=== PATIENT | male | born 1990 | race Hispanic/Latino ===

== ENCOUNTER 2024-10-23 09:55 | Emergency (ER) | payer SELFPAY ==
[~2024-10-23] VITALS: Ht 170.2 cm; Wt 82.0 kg
[2024-10-23 10:00] VITALS: BP 170/94
[2024-10-23] MEDS ORDERED: FLUORESCEIN SODIUM 1 MG EA OD ONE (10:05)
[2024-10-23] MEDS ORDERED: TETRACAINE HCL 0.5 %/4 ML SOL OD ONE (10:05)
[2024-10-23 10:15] VITALS: BP 152/95
[2024-10-23] MEDS ORDERED: ERYTHROMYCIN O3.5 GM OD (10:16)
[2024-10-23 10:18] VITALS: BP 140/95
[2024-10-23 10:20] VITALS: BP 140/95
== END 2024-10-23 10:29 | disposition home or self-care (01) | DRG 115 ==
LOC: ED 09:55
PROC: 08C8XZZ Extirpation of Matter from Right Cornea, External Approach (ICD-10-PCS; principal; 2024-10-23)
DX: T15.01XA Foreign body in cornea, right eye, initial encounter (principal); W44.F9XA Other object of natural or organic material, entering into or through a natural orifice, initial encounter; Y92.73 Farm field as the place of occurrence of the external cause; Y99.0 Civilian activity done for income or pay